=== PATIENT | female | born 1990 | race Caucasian/White ===

== ENCOUNTER 2016-07-20 13:52 | Emergency (ER) | payer OTHER ==
[~2016-07-20] VITALS: Ht 177.8 cm; Wt 115.7 kg
[~2016-07-20 13:52] MED LIST: DICLEGIS DR 101 EACH PO; IBUPROFEN800 M1 PO; PRENATAL TABLE1 EAC2 PO
[2016-07-20 14:00] VITALS: BP 173/72
--- NOTE | 2016-07-20 14:37 | ED GI/GU/ABDOMINAL COMPLAINT ---
History of Present Illness General Chief Complaint: General Adult Stated Complaint: BLOOD IN STOOL AND RIGHT EAR PAIN Source: patient, old records Exam Limitations: no limitations Vital Signs & Intake/Output Vital Signs & Intake/Output Vital Signs Date Time Temp Pulse Resp B/P Pulse O2 O2 Flow FiO2 Ox Delivery Rate 07/20 1400 97.4 87 20 173/72 98 Room Air Allergies Coded Allergies: NO KNOWN ALLERGIES (06/10/16) Reconcile Medications Anusol Hc (Anusol-Hc) 25 MG SUPP.RECT 1 SUP RC BID hemorrhoid Mometasone Furoate (Nasonex) 50 MCG SPRAY.PUMP 2 SPRAY NASB DAILY rhinitis Triage Note: PT TO ED C/O BRB IN STOOL X 1 WEEK. DENIES ABD PAIN. DENIES N/V/D. DENIES S/S. PT ALSO C/O RIGHT EAR PAIN X 3 DAYS. Triage Nurses Notes Reviewed? yes ? n Is pt currently ? No Onset: Gradual Duration: week(s): (1), constant Timing: recent history Quality/Severity: aching, burning Severity Numbers: 4 Location: rectal Radiation: no radiation Activities at Onset: bowel movement No Modifying Factors: none Associated Symptoms: denies HPI: 26-year-old female presents emergency room complaining of bright red blood per rectum during bowel movements that has been present for the past 1 week associated burning aching pain to her rectum after having a bowel movement. The patient is 6 weeks normal delivery. She denies any abdominal pain nausea vomiting diarrhea. No history of similar symptoms in the past. The patient herself has no history of hemorrhoids however states that there are multiple family members that do state they've had similar symptoms. She denies any urinary complaints vaginal bleeding or discharge no fever no chills. There are no other modifying factors or associated symptoms otherwise (ALEKSANDRA BOLES) Past History Travel History Traveled to [place] past 21 day No Medical History Any Pertinent Medical History? 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 No (ALEKSANDRA BOLES) Review of Systems Review of Systems Constitutional: Reports: see HPI. All Other Systems: Reviewed and Negative Comments Review of systems: See HPI, All other systems negative. Constitutional, no chills no fever, no malaise HEENT: No visual changes no sore throat no congestion Cardiovascular: No chest pain , no palpitation Skin, no rashes, no change in skin Respiratory: No dyspnea no cough no sputum GI: No nausea no vomiting, no diarrhea, : No dysuria Muscle skeletal: No joint pain, no back pain, no neck pain, Neurologic: No numbness no headache Psych: No stress Heme/endocrine: No bruising no bleeding Immunology: No lymphadenopathy (ALEKSANDRA BOLES) Physical Exam Physical Exam General Appearance: well developed/nourished, alert, awake Gastrointestinal: normal bowel sounds, soft, non-tender Comments: Well-developed well-nourished person in no acute distress HEENT: Normal EENT exam; PERRL, EOMI. HEAD is atraumatic. moist mucous membranes. Neck: Supple, normal range of motion Back: Nontender, Full range of motion Cardiovascular: Regular rate and rhythms no murmurs rubs Respiratory: Chest nontender.There were no bony deformities, no asymmetry. No respiratory distress. Patient speaking in full complete sentences. Breath sounds clear to auscultation bilaterally: NO W/R/R Abdomen: Soft, nontender nondistended, no appreciable organomegaly. Normal bowel sounds. No rebound/guarding, Rectal: Nontender. Brown stool heme positive No mass/hemorrhoid, no fissure. Extremity: No edema, full range of motion of extremities Neuro: Alert oriented x3, motor sensory normal. There were no obvious focal neurologic abnormalities. Skin: No appreciable rash on exposed skin, skin is warm and dry. Psych: Mood and affect is normal, memory and judgment is normal. Core Measures ACS in differential dx? No Severe Sepsis Present: No Septic Shock Present: No (ALEKSANDRA BOLES) Progress Differential Diagnosis: hernia, hemorrhoids, ischemic bowel, inflamm bowel dis Plan of Care: Orders Procedure Date/time Status CBC WITHOUT DIFFERENTIAL 07/20 1427 Complete BASIC METABOLIC PANEL 07/20 1427 Complete Laboratory Tests 07/20/16 1438: Anion Gap 9, Estimated GFR > 60, BUN/Creatinine Ratio 14.3, Glucose 87, Calcium 8.8, CBC w Diff NO MAN DIFF REQ, RBC 4.58, MCV 77.0 L, MCH 24.8 L, RDW 17.3 H , MPV 7.3 L, Gran % 50.2, Lymphocytes % 41.0, Monocytes % 7.2, Eosinophils % 1.4, Basophils % 0.2, Absolute Granulocytes 3.6, Absolute Lymphocytes 2.9, Absolute Monocytes 0.5, Absolute Eosinophils 0.1, Absolute Basophils 0, PUBS MCHC 32.2 L There is no pain patient clinically appears well orthostatics are negative Discussed the patient length all of her lab results need for close follow-up with GI information is provided for the same prescription for Anusol suppository provided given patient's symptoms although there is no palpable hemorrhoid on exam we'll treat for suspected given patient's pain with bowel movements bright red blood during bowel movements. Bleeding the patient requires any imaging giving her lab studies and lack of pain. She feels comfortable this plan and she will return anytime sooner symptoms persist (ALEKSANDRA BOLES) Initial ED EKG: none (ALEKSANDRA BOLES) Departure Departure Time of Disposition: 1516 Disposition: HOME OR SELF CARE Condition: Stable Clinical Impression Primary Impression: Rectal bleeding Referrals: TIFFANIE JOHNSON,TYRONE Hamilton (PCP/Family) Additional Instructions: follow up with parts analyst dr reed this week. anusol suppository as directed. nasonex nasal spray as directed. these prescriptons were sent to your pharmacy return at anytime sooner if your symptoms worsen or you have any other concerns. Departure Forms: Customer Survey General Discharge Information Prescriptions: Current Visit Scripts Anusol Hc (Anusol-Hc) 1 SUP RC BID #10 SUP Mometasone Furoate (Nasonex) 2 SPRAY NASB DAILY #1 INHAL (ALEKSANDRA BOLES) PA/HOG FEEDER Co-Sign Statement Statement: ED Attending supervision documentation- [] I saw and evaluated the patient. I have also reviewed all the pertinent lab results and diagnostic results. I agree with the findings and the plan of care as documented in the PA's/HOG FEEDER's documentation. x I have reviewed the ED Record and agree with the PA's/HOG FEEDER's documentation. [] Additions or exceptions (if any) to the PAs/HOG FEEDER's note and plan are summarized below: [] (TIFFANI JOHNSON,STEPHEN)
[2016-07-20 14:49] LABS: ABSOLUTE BASOPHIL COUNT 0 /CUMM (0.0-0.2); ABSOLUTE EOSINOPHIL COUNT 0.1 /CUMM (0.0-0.7); ABSOLUTE GRANULOCYTE CT 3.6 /CUMM (1.4-6.5); ABSOLUTE LYMPH COUNT 2.9 /CUMM (1.2-3.4); ABSOLUTE MONOCYTE COUNT 0.5 /CUMM (0.10-0.60); BASOPHIL % 0.2 % (0.0-2.0); EOSINOPHIL % 1.4 % (0-5); GRANULOCYTE % 50.2 % (42.2-75.2); HEMATOCRIT 35.3 % (37-47); MEAN CORPUSCULAR HGB 24.8 PG (27.0-31.0); MEAN CORPUSCULAR HGB CONC 32.2 G/DL (33.0-37.0); MEAN PLATELET VOLUME 7.3 FL (7.4-10.4); PLATELET COUNT 347 /CUMM (130-400); RBC DISTRIBUTION WIDTH 17.3 % (11.5-14.5); RED BLOOD CELL CT 4.58 /CUMM (4.20-5.40); WHITE BLOOD CELL COUNT 7.2 /CUMM (4.8-10.8)
[2016-07-20] MEDS ORDERED: NASONEX17 GM NASB (15:18)
[2016-07-20] MEDS ORDERED: ANUSOL-HC25 M1 RC (15:18)
== END 2016-07-20 15:37 ==
LOC: ERH 13:52
PROVIDERS: Physician Assistant Medical
DX: K62.5 Hemorrhage of anus and rectum (principal)

== ENCOUNTER 2016-12-03 09:32 | Emergency (ER) | payer OTHER ==
[~2016-12-03 09:32] MED LIST changes: +ANUSOL-HC25 M1 RC; +NASONEX17 GM NASB
--- NOTE | 2016-12-03 10:06 | ED EAR COMPLAINT ---
History of Present Illness General Chief Complaint: Ear Complaints Stated Complaint: LUMP BEHIND L EAR, DIZZINESS Source: patient Exam Limitations: no limitations Vital Signs & Intake/Output Vital Signs & Intake/Output Vital Signs Date Time Temp Pulse Resp B/P B/P Pulse O2 O2 Flow FiO2 Mean Ox Delivery Rate 12/03 1148 98.6 86 18 122/84 98 Room Air 12/03 0939 97.8 80 20 126/86 99 Room Air Allergies Coded Allergies: NO KNOWN ALLERGIES (06/10/16) Reconcile Medications Ketorolac Tromethamine 10 MG TABLET 1 TAB PO TID PAIN RECEIVED IM IN ER Ondansetron HCl (Zofran) 4 MG TABLET 1 TAB PO Q6-8P PRN NAUSEA Triage Note: PT PRESENTS TO ER C/O OF LUMP BEHIND LEFT EAR. PT STATES EAR FEELS PAINFUL. Triage Nurses Notes Reviewed? yes Onset: Gradual Duration: constant Timing: recent history Severity: severe Severity Numbers: 7 : No Patient currently breastfeeds: No HPI: Patient is a 26-year-old female with an unremarkable past medical history presents emergency room with a gradual onset of tender swollen nodes that are localized around patient's left ear. Patient states that today the pain has worse where now she has mild nausea without emesis and headache concerns. Patient just finished her menstrual cycle yesterday Patient is not breast-feeding Patient denies any fever chills blurred vision neck pain neck stiffness, sore throat, cough abdominal pain (ALEKSANDRA VALENTINE) Past History Travel History Traveled to [place] past 21 day No Medical History Any Pertinent Medical History? 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 No (ALEKSANDRA VALENTINE) Review of Systems Review of Systems Constitutional: Reports: no symptoms. EENTM: Reports: see HPI. Respiratory: Reports: no symptoms. Cardiovascular: Reports: no symptoms. GI: Reports: see HPI, nausea. Genitourinary: Reports: no symptoms. Musculoskeletal: Reports: no symptoms. Skin: Reports: no symptoms. Neurological/Psychological: Reports: see HPI, headache. Hematologic/Endocrine: Reports: no symptoms. Immunologic/Allergic: Reports: no symptoms. All Other Systems: Reviewed and Negative (ALEKSANDRA VALENTINE) Physical Exam Physical Exam General Appearance: no apparent distress, alert, comfortable Ears: Bilateral: canal normal, Tympanic normal. Comments: Well-developed well-nourished person in no acute distress HEENT: extraocular motion intact, no nystagmus. Pupils equally round and reactive to light and accommodation. Nose is atraumatic. External auditory canal and Tympanic membranes clear. Pharynx normal. No swelling or edema. Neck: Supple, no lymphadenopathy, normal range of motion without pain or tenderness Back: Nontender, no CVA tenderness. Cardiovascular: Regular rate and rhythms no murmurs rubs or gallops, normal JVP Respiratory: Chest nontender. No respiratory distress.breath sounds clear to auscultation bilaterally Abdomen: Soft, nontender nondistended, no appreciable organomegaly. Normal bowel sounds. No ascites Extremity: No edema, no calf tenderness to palpation, normal and equal pulses. Neuro: Alert oriented x3, motor sensory normal, Skin: No appreciable rash on exposed skin, skin is warm and dry. Psych: Mood and affect is normal, memory and judgment is normal. Diagram Ear Left 1) Adjacent to the mastoid noted 5 cm tender fixated nodule with no active discharge no fluctuance no induration no surrounding erythema no warmth 2) Noted inferior to the ear externally- 5 cm tender fixated nodule with no active discharge no fluctuance no induration no surrounding erythema no warmth (ALEKSANDRA VALENTINE) Progress Differential Diagnoses I considered the following diagnoses in my evaluation of the patient: [ Meningitis, lymphadenopathy, mastoiditis, cellulitis, lymphoma,] Plan of Care: Current Medications Sig/Minh Start time Last Medication Dose Stop Time Status Admin Ketorolac 30 MG ONCE ONE 12/03 1114 UNVr Tromethamine 12/04 1115 (Toradol) Ondansetron HCl 4 MG ONCE ONE 12/03 1114 UNVr (Zofran) 12/04 1115 Patient was afebrile left external auditory canal and tympanic membrane were unremarkable nontender external anatomy of the ear. Patient does have surrounding concerns of lymph node enlargement and tenderness Patient has full active range of motion noted with cervical spine movements. No concerns of meningitis. No concerns of abscess or cellulitis. At this time there is no overt findings of infection Patient will be treated for concerns of lymphadenopathy Patient was able tolerate by mouth upon discharge (ALEKSANDRA VALENTINE) Initial ED EKG: none (ALEKSANDRA VALENTINE) Departure Departure Disposition: HOME OR SELF CARE Condition: Stable Clinical Impression Primary Impression: Lymphadenopathy Referrals: TIFFANIE JOHNSON,TYRONE Hamilton (PCP/Family) Additional Instructions: As discussed begin the prescription at ketorolac as directed for pain and inflammation. prescriptionsis [facility] at [facility]. Begin the prescription of Zofran for nausea. Begin drinking plenty of water for hydration. If symptoms worsen or if YOU develop any new concerning symptom return to emergency room immediately. If no better in 2 days follow-up with your primary care doctor Departure Forms: Customer Survey General Discharge Information Prescriptions: Current Visit Scripts Ketorolac Tromethamine 1 TAB PO TID #15 TAB RECEIVED IM IN ER Ondansetron HCl (Zofran) 1 TAB PO Q6-8P PRN NAUSEA #10 TAB (ALEKSANDRA VALENTINE) PA/SNOW MAKER Co-Sign Statement Statement: ED Attending supervision documentation- I saw and evaluated the patient. I have also reviewed all the pertinent lab results and diagnostic results. I agree with the findings and the plan of care as documented in the PA's/SNOW MAKER's documentation. x I have reviewed the ED Record and agree with the PA's/SNOW MAKER's documentation. [] Additions or exceptions (if any) to the PAs/SNOW MAKER's note and plan are summarized below: [] (TIFFANI JOHNSON,STEPHEN)
[2016-12-03] MEDS ORDERED: ZOFRAN4 M2 PO (11:36)
[2016-12-03] MEDS ORDERED: KETOROLAC TROME10 M1 PO (11:36)
[2016-12-03 11:48] VITALS: BP 122/84
== END 2016-12-03 11:49 ==
LOC: ERH 09:32
DX: R59.1 Generalized enlarged lymph nodes (principal)
CPT/HCPCS: 96372; J1885; J3101

== ENCOUNTER 2016-12-04 23:43 | Emergency (ER) | payer OTHER ==
[~2016-12-04] VITALS: Ht 177.8 cm; Wt 120.2 kg
[~2016-12-04 23:43] MED LIST changes: +KETOROLAC TROME10 M1 PO; +ZOFRAN4 M2 PO
[2016-12-05 00:35] VITALS: BP 123/65
--- NOTE | 2016-12-05 00:49 | ED GENERAL ADULT ---
History of Present Illness General Chief Complaint: Skin Rash/ Abcess Stated Complaint: "PER PT ABCESS BEHIND LT EAR" Source: patient, old records Exam Limitations: no limitations Vital Signs & Intake/Output Vital Signs & Intake/Output Vital Signs Date Time Temp Pulse Resp B/P B/P Pulse O2 O2 Flow FiO2 Mean Ox Delivery Rate 12/05 0149 18 12/05 0057 100 Room Air 12/05 0035 96.8 74 18 123/65 100 Room Air Allergies Coded Allergies: NO KNOWN ALLERGIES (06/10/16) Reconcile Medications Azithromycin (Zithromax) 250 MG TABLET 1 TAB PO DAILY lymphadenitis Triage Nurses Notes Reviewed? yes Onset: Last week Duration: day(s):, constant, continues in ED, getting worse Timing: recent history Severity: moderate Modifying Factors: Improves With: medication. LMP (ages 10-50): unknown : No Patient currently breastfeeds: No HPI: 1 week prior to admission patient noted tender lump to the back of her left ear. She was seen yesterday prescribed medications for pain and nausea. She presents today with another lump increased in size. She denies fever chills nausea vomiting diarrhea abdominal pain chest pain shortness breath headache dysuria rash bleeding Past History Travel History Traveled to [place] past 21 day No Medical History Any Pertinent Medical History? 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 No Review of Systems Review of Systems Constitutional: Reports: no symptoms. EENTM: Reports: no symptoms. Respiratory: Reports: no symptoms. Cardiovascular: Reports: no symptoms. GI: Reports: no symptoms. Genitourinary: Reports: no symptoms. Musculoskeletal: Reports: no symptoms. Skin: Reports: see HPI, lumps. Neurological/Psychological: Reports: no symptoms. Hematologic/Endocrine: Reports: no symptoms. Immunologic/Allergic: Reports: no symptoms. All Other Systems: Reviewed and Negative Physical Exam Physical Exam General Appearance: well developed/nourished, alert, awake, anxious, mild distress, obese Head: atraumatic, normal appearance Eyes: Bilateral: normal appearance, PERRL, EOMI. Ears, Nose, Throat: normal pharynx, normal ENT inspection, hearing grossly normal, moist mucus membranes Neck: normal inspection, supple, full range of motion, lymphadenopathy (L), left postauricular lymphadenopathy to noted to be tender 1 cm2 Respiratory: normal breath sounds, chest non-tender, no respiratory distress, quiet respiration, lungs clear Cardiovascular: regular rate/rhythm, normal peripheral pulses, norml femoral pulses equa Peripheral Pulses: 4+ carotid (R), 4+ carotid (L) Gastrointestinal: normal bowel sounds, soft, non-tender, no organomegaly Back: normal inspection, normal range of motion, no vertebral tenderness Extremities: normal inspection, normal capillary refill, normal range of motion, no edema Neurologic/Psych: no motor/sensory deficits, awake, alert, oriented x 3, normal gait, normal mood/affect, 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 Skin: intact, normal color, warm/dry Lymphatic: adenopathy Core Measures ACS in differential dx? No CVA/TIA Diagnosis: No Severe Sepsis Present: No Septic Shock Present: No Progress Differential Diagnoses I considered the following diagnoses in my evaluation of the patient: Abscess cellulitis adenopathy tumor Plan of Care: antibiotic Initial ED EKG: none Departure Departure Time of Disposition: 105 Disposition: HOME OR SELF CARE Condition: Stable Clinical Impression Primary Impression: Lymphadenitis, acute Referrals: TIFFANIE JOHNSON,TYRONE Hamilton (PCP/Family) Departure Forms: Customer Survey General Discharge Information Prescriptions: Current Visit Scripts Azithromycin (Zithromax) 1 TAB PO DAILY #4 TAB Critical Care Note Critical Care Note Critical Care Time: non-applicable
[2016-12-05] MEDS ORDERED: ZITHROMAX250 M2 PO (01:07)
== END 2016-12-05 01:50 ==
LOC: ERH 23:43
DX: L04.9 Acute lymphadenitis, unspecified (principal)